=== PATIENT | female | born 1945 | race Caucasian/White ===

== ENCOUNTER 2023-02-27 17:33 | Inpatient (IN) | payer BC ==
[~2023-02-27] VITALS: Ht 167.6 cm; Wt 85.2 kg
[2023-02-27 18:19] LABS: CALCIUM 8.4 mg/dL (8.5-10.1); POTASSIUM 4.7 mmol/L (3.5-5.1)
[2023-02-27 18:28] LABS: BASOPHILS # (AUTO) 0.1 K/UL (0.0-0.2); BASOPHILS % (AUTO) 0.5 % (0.0-2.0); EOSINOPHILS # (AUTO) 0.2 K/uL (0.0-0.7); EOSINOPHILS % (AUTO) 1.3 % (0.0-7.0); HEMATOCRIT 29.8 % (31.2-41.9); LYMPHOCYTES # (AUTO) 1.4 K/uL (0.8-4.8); LYMPHOCYTES % (AUTO) 9.3 % (20.5-51.5); MEAN CORPUSCULAR HEMOGLOBIN 30.8 uug (24.7-32.8); MEAN CORPUSCULAR HGB CONC 34 g/dL (32.3-35.6); MEAN CORPUSCULAR VOLUME 91.6 fL (75.5-95.3); MONOCYTES # (AUTO) 1.2 K/uL (0.1-1.30); MONOCYTES % (AUTO) 8.1 % (0.0-11.0); NEUTROPHILS # (AUTO) 12.5 K/uL (1.8-8.9); NEUTROPHILS % (AUTO) 80.8 % (38.5-71.5); PLATELET COUNT (AUTO) 468 K/uL (179-408); RED BLOOD CELL COUNT(AUTO) 3.25 MIL/uL (3.63-4.92); RED CELL DISTRIBUTION WIDTH 15.3 % (12.3-17.7); WHITE BLOOD COUNT (AUTO) 15.4 K/uL (3.8-11.8)
[2023-02-27 18:30] LABS: DIFFERENTIAL COMMENT 1
[2023-02-27 18:31] LABS: ALBUMIN 2.1 g/dL (3.4-5.0); BILIRUBIN,TOTAL 0.4 mg/dL (0.2-1.0); TOTAL PROTEIN, SERUM 6.7 g/dL (6.4-8.2)
[2023-02-27] MEDS ORDERED: ALBUTEROL SULFATE 2.5 MG/3 ML NEBU ONE (19:28)
[2023-02-27] MEDS ORDERED: FUROSEMIDE 20 MG/2 ML VIAL ONE (19:29)
[2023-02-27] MEDS ORDERED: ALBUTEROL SULFATE 2.5 MG/3 ML NEBU NEB ONE (19:30)
[2023-02-27] MEDS ORDERED: FUROSEMIDE 20 MG/2 ML VIAL IV ONE (19:30)
[2023-02-27 19:35] VITALS: O2SAT 96
[2023-02-27 19:46] VITALS: O2SAT 98
[2023-02-27 19:50] VITALS: O2SAT 98
[2023-02-27] MEDS ORDERED: CEFTRIAXONE /D5W 50ML IVPB **ER PYXIS IV ONE (19:59)
[2023-02-27] MEDS ORDERED: AZITHROMYCIN 500MG/ D5W 250ML IVPB **ER PYXIS ONLY IV ONE (19:59)
[2023-02-27] MEDS ORDERED: CEFTRIAXONE 1 G in IV DEXTROSE 5% 50 ML IV ONE (20:00)
[2023-02-27] MEDS ORDERED: AZITHROMYCIN IV 500 MG in IV DEXTROSE 5% 250 ML IV ONE (20:00)
[2023-02-27] MEDS ORDERED: IV NORMAL SALINE 500 ML BAG IV ONE (20:15)
[2023-02-27] MEDS ORDERED: ONDANSETRON 4 MG/2 ML VIAL IV PRN (20:30)
[2023-02-27] MEDS ORDERED: REMEDY ESSENTIAL ZINC PASTE 113 GM TP PRN (20:30)
[2023-02-27] MEDS ORDERED: MAGNESIUM HYDROXIDE 30 ML LIQUID UDC PO PRN (20:30)
[2023-02-27] MEDS ORDERED: CEFEPIME HCL 1 G VIAL ONE (22:30)
[2023-02-27] MEDS ORDERED: VANCOMYCIN 1000 MG VIAL ONE (22:37)
[2023-02-27] MEDS ORDERED: VANCOMYCIN HCL 500 MG VIAL ONE (22:37)
[2023-02-27] MEDS: IV 1/2NS 1000 ML 1,000 ML IV PRN (22:41)
[2023-02-27] MEDS: CEFEPIME HCL 1 G in IV DEXTROSE 5% 50 ML IV SCH (22:46)
[2023-02-27] MEDS: ENOXAPARIN SODIUM 40 MG/0.4 ML DISP.SYRIN SQ SCH (22:57)
[2023-02-27] MEDS ORDERED: VANCOMYCIN IV 1,500 MG in IV DEXTROSE 5% 500 ML IV ONE (23:00)
[2023-02-27 23:10] VITALS: BP 114/49; TEMP 97.5; O2SAT 96
[2023-02-28 04:20] VITALS: BP 125/61; TEMP 98.5; O2SAT 96
[2023-02-28 06:24] LABS: BASOPHILS # (AUTO) 0.2 K/UL (0.0-0.2); BASOPHILS % (AUTO) 1.3 % (0.0-2.0); EOSINOPHILS # (AUTO) 0.2 K/uL (0.0-0.7); EOSINOPHILS % (AUTO) 1.7 % (0.0-7.0); HEMOGLOBIN 9.1 g/dL (10.9-14.3); LYMPHOCYTES # (AUTO) 1.8 K/uL (0.8-4.8); MEAN CORPUSCULAR HEMOGLOBIN 30.3 uug (24.7-32.8); MEAN CORPUSCULAR HGB CONC 32 g/dL (32.3-35.6); MEAN CORPUSCULAR VOLUME 93.4 fL (75.5-95.3); MONOCYTES # (AUTO) 1.2 K/uL (0.1-1.30); MONOCYTES % (AUTO) 9.2 % (0.0-11.0); NEUTROPHILS # (AUTO) 9.6 K/uL (1.8-8.9); NEUTROPHILS % (AUTO) 73.8 % (38.5-71.5); PLATELET COUNT (AUTO) 456 K/uL (179-408); RED CELL DISTRIBUTION WIDTH 15.1 % (12.3-17.7)
[2023-02-28 06:27] LABS: DIFFERENTIAL COMMENT 1
[2023-02-28 06:45] LABS: ALANINE AMINOTRANSFERASE 23 U/L (14-59); ALBUMIN 1.9 g/dL (3.4-5.0); ALKALINE PHOSPHATASE 85 U/L (50-136); ASPARTATE AMINOTRANSFERASE 22 U/L (15-37); BILIRUBIN,TOTAL 0.4 mg/dL (0.2-1.0); CALCIUM 8.5 mg/dL (8.5-10.1); CARBON DIOXIDE 23 mmol/L (21-32); CHLORIDE 98 mmol/L (98-107); CREATININE 0.8 mg/dL (0.6-1.3); GLUCOSE 98 mg/dL (74-106); MAGNESIUM 2.1 mg/dL (1.8-2.4); PHOSPHOROUS 3.4 mg/dL (2.5-4.9); POTASSIUM 4.5 mmol/L (3.5-5.1); SODIUM SERUM 132 mmol/L (136-145); UREA NITROGEN, BLOOD 12 mg/dL (7-18)
[2023-02-28 07:28] LABS: *BILIRUBIN,URIN NEGATIVE (NEGATIVE); *BLOOD, URINE NEGATIVE (NEGATIVE); *CLARITY,URINE CLEAR (CLEAR); *COLOR,URINE YELLOW (YELLOW); *KETONES,URINE NEGATIVE (NEGATIVE); *PROTEIN,URINE TRACE (NEGATIVE); *UROBILINOGEN,URINE 0.2 E.U./dl (NORMAL); LEUKOCYTE ESTERASE ,URINE TRACE (NEGATIVE); NITRITE, URINE POSITIVE (NEGATIVE); UGLUCOSE NEGATIVE (NEGATIVE)
[2023-02-28 07:56] LABS: BACTERIA,URINE FEW /HPF (NONE SEEN); RBC,URINE 0-3 /HPF (0-3); SQUAMOUS EPITHELIAL CELL,UR FEW /HPF (NONE SEEN); URINE AMORPHOUS URATE FEW /HPF
[2023-02-28 08:30] VITALS: O2SAT 96
[2023-02-28] MEDS: CEFEPIME HCL 1 G in IV DEXTROSE 5% 50 ML IV SCH ×2 (09:10→20:32)
[2023-02-28 11:54] VITALS: BP 135/66; TEMP 98.1; O2SAT 96
[2023-02-28] MEDS: IV 1/2NS 1000 ML 1,000 ML IV PRN (15:52)
[2023-02-28] MEDS: VANCOMYCIN IV 1,000 MG in IV DEXTROSE 5% 250 ML IV SCH (16:04)
[2023-02-28 16:39] VITALS: BP 139/46; TEMP 98.9; O2SAT 96
[2023-02-28] MEDS ORDERED: BENZONATATE 100 MG CAPSULE PO SCH (19:15)
[2023-02-28 20:17] VITALS: BP 135/72; TEMP 98.7; O2SAT 96
[2023-02-28 20:30] VITALS: O2SAT 96
[2023-02-28] MEDS: BENZONATATE 100 MG CAPSULE PO PRN (20:31)
[2023-02-28] MEDS: ENOXAPARIN SODIUM 40 MG/0.4 ML DISP.SYRIN SQ SCH (20:33)
[2023-03-01 00:03] VITALS: BP 141/73; TEMP 98.9; O2SAT 96
[2023-03-01] MEDS: IV 1/2NS 1000 ML 1,000 ML IV PRN ×2 (01:17→11:29)
[2023-03-01 04:20] VITALS: BP 140/74; TEMP 99.2; O2SAT 96
[2023-03-01] MEDS: CEFEPIME HCL 1 G in IV DEXTROSE 5% 50 ML IV SCH ×2 (08:38→20:49)
[2023-03-01 11:17] VITALS: BP 126/57; TEMP 97.7; O2SAT 97
[2023-03-01] MEDS: VANCOMYCIN IV 1,000 MG in IV DEXTROSE 5% 250 ML IV SCH (11:28)
[2023-03-01] MEDS ORDERED: OXYC5CAP18 PO (14:27)
[2023-03-01] MEDS ORDERED: bupropion PO (14:27)
[2023-03-01] MEDS ORDERED: ACET325T53 PO (14:27)
[2023-03-01] MEDS ORDERED: LEVO175T7 PO (14:27)
[2023-03-01] MEDS ORDERED: ALBU0.63 IH (14:27)
[2023-03-01] MEDS ORDERED: CARV3.122 PO (14:27)
[2023-03-01] MEDS ORDERED: MAGN400T26 PO (14:27)
[2023-03-01] MEDS ORDERED: ALEN70TA80 PO (14:27)
[2023-03-01] MEDS ORDERED: BISA10SU61 RC (14:27)
[2023-03-01] MEDS ORDERED: PARO40TA4 PO (14:27)
[2023-03-01] MEDS ORDERED: SODI1TAB3 PO (14:27)
[2023-03-01] MEDS ORDERED: ONDA-104 PO (14:27)
[2023-03-01] MEDS ORDERED: NA P133E RC (14:27)
[2023-03-01] MEDS ORDERED: ASCO500C18 PO (14:27)
[2023-03-01] MEDS ORDERED: TRAZ-182 PO (14:27)
[2023-03-01] MEDS ORDERED: DONE5TAB34 PO (14:27)
[2023-03-01] MEDS ORDERED: PANT20TA2 PO (14:27)
[2023-03-01] MEDS ORDERED: HYDR-894 PO (14:27)
[2023-03-01] MEDS ORDERED: SENN-261 PO (14:27)
[2023-03-01] MEDS ORDERED: MULT-1160 PO (14:27)
[2023-03-01 14:39] VITALS: O2SAT 97
[2023-03-01 16:04] VITALS: BP 164/79; TEMP 99.1
[2023-03-01 20:19] VITALS: BP 137/78; TEMP 98.9; O2SAT 96
[2023-03-01] MEDS: ENOXAPARIN SODIUM 40 MG/0.4 ML DISP.SYRIN SQ SCH (20:49)
[2023-03-02] VITALS (8 sets, daily range): BP systolic 106–125; BP diastolic 48–64; TEMP 98.3–98.7; O2SAT 74–98
[2023-03-02 04:45] LABS: THYROID STIMULATING HORMONE 0.064 mIU/mL (0.358-3.740)
[2023-03-02 04:54] LABS: CALCIUM 8.2 mg/dL (8.5-10.1); CARBON DIOXIDE 24 mmol/L (21-32); CHLORIDE 94 mmol/L (98-107); CREATININE 0.8 mg/dL (0.6-1.3); GLUCOSE 119 mg/dL (74-106); POTASSIUM 4.3 mmol/L (3.5-5.1); SODIUM SERUM 125 mmol/L (136-145); UREA NITROGEN, BLOOD 6 mg/dL (7-18)
[2023-03-02 04:58] LABS: MAGNESIUM 1.7 mg/dL (1.8-2.4); PHOSPHOROUS 2.6 mg/dL (2.5-4.9)
[2023-03-02 05:19] LABS: URIC ACID 0.1 mg/dL (2.6-6.0)
[2023-03-02] MEDS: VANCOMYCIN IV 1,000 MG in IV DEXTROSE 5% 250 ML IV SCH (05:33)
[2023-03-02] MEDS: IV 1/2NS 1000 ML 1,000 ML IV PRN ×2 (05:37→21:50)
[2023-03-02 05:39] LABS: *SODIUM RNDM,URINE 44 mmol/L (40-220)
[2023-03-02] MEDS: CEFEPIME HCL 1 G in IV DEXTROSE 5% 50 ML IV SCH ×2 (08:42→21:46)
[2023-03-02] MEDS ORDERED: MAGNESIUM OXIDE 400 MG TABLET PO ONE ×2 (09:30)
[2023-03-02] MEDS: GUAIFENESIN/DEXTROMETHORPHAN 5 ML UDC PO PRN (13:22)
[2023-03-02] MEDS ORDERED: SENNOSIDES 1 TABLET PO PRN (18:30)
[2023-03-02] MEDS ORDERED: hydrALAZINE HCL 25 MG TABLET PO PRN (18:30)
[2023-03-02] MEDS ORDERED: BISACODYL 10 MG SUPP.RECT RC PRN (18:30)
[2023-03-02] MEDS ORDERED: FLEET ENEMA 133 ML BOTTLE RC PRN (18:30)
[2023-03-02] MEDS: SODIUM CHLORIDE 1,000 MG TABLET PO SCH (18:52)
[2023-03-02] MEDS ORDERED: VANCOMYCIN IV 1,250 MG in IV DEXTROSE 5% 250 ML IV SCH (21:00)
[2023-03-02] MEDS: DONEPEZIL 5 MG TABLET PO SCH (21:46)
[2023-03-02] MEDS: TRAZODONE 50 MG TABLET PO SCH (21:47)
[2023-03-02] MEDS: ENOXAPARIN SODIUM 40 MG/0.4 ML DISP.SYRIN SQ SCH (21:48)
[2023-03-03 05:16] VITALS: BP 128/68; TEMP 98.6; O2SAT 96
[2023-03-03 06:51] LABS: CALCIUM 7.9 mg/dL (8.5-10.1); CARBON DIOXIDE 25 mmol/L (21-32); CHLORIDE 94 mmol/L (98-107); CREATININE 0.8 mg/dL (0.6-1.3); GLUCOSE 98 mg/dL (74-106); MAGNESIUM 1.7 mg/dL (1.8-2.4); POTASSIUM 4.1 mmol/L (3.5-5.1); SODIUM SERUM 123 mmol/L (136-145); UREA NITROGEN, BLOOD 9 mg/dL (7-18)
[2023-03-03 08:33] LABS: MAGNESIUM 1.7 mg/dL (1.8-2.4); PHOSPHOROUS 2.3 mg/dL (2.5-4.9); URIC ACID 2.6 mg/dL (2.6-6.0)
[2023-03-03] MEDS: CEFEPIME HCL 1 G in IV DEXTROSE 5% 50 ML IV SCH ×2 (08:45→21:54)
[2023-03-03] MEDS: GUAIFENESIN/DEXTROMETHORPHAN 5 ML UDC PO PRN ×2 (08:46→16:10)
[2023-03-03] MEDS: MAGNESIUM OXIDE 400 MG TABLET PO SCH (08:46)
[2023-03-03] MEDS: PAROXETINE HCL 20 MG TABLET PO SCH (08:46)
[2023-03-03] MEDS: ASCORBIC ACID 500 MG TABLET PO SCH (08:46)
[2023-03-03] MEDS: MULTIVIT, IRON, MIN NO. 8, FA TABLET PO SCH (08:46)
[2023-03-03] MEDS: SODIUM CHLORIDE 1,000 MG TABLET PO SCH ×2 (08:46→16:10)
[2023-03-03] MEDS ORDERED: MAGNESIUM OXIDE 400 MG TABLET PO ONE (09:00)
[2023-03-03] MEDS ORDERED: SODIUM PHOSPHATE MM 15 MMOL in IV NORMAL SALINE 250 ML IV ONE (09:00)
[2023-03-03] MEDS: buPROPion 100 MG TABLET PO SCH (09:50)
[2023-03-03 10:25] LABS: THYROID STIMULATING HORMONE 0.114 mIU/mL (0.358-3.740)
[2023-03-03 11:23] VITALS: BP 110/59; TEMP 98.4; O2SAT 99
[2023-03-03 15:20] VITALS: BP 120/60; TEMP 98.6; O2SAT 97
[2023-03-03] MEDS: IV 1/2NS 1000 ML 1,000 ML IV PRN (16:50)
[2023-03-03 19:45] VITALS: BP 119/60; TEMP 99.1; O2SAT 96
[2023-03-03 20:51] VITALS: O2SAT 95
[2023-03-03] MEDS: DONEPEZIL 5 MG TABLET PO SCH (21:53)
[2023-03-03] MEDS: ENOXAPARIN SODIUM 40 MG/0.4 ML DISP.SYRIN SQ SCH (21:53)
[2023-03-03] MEDS: TRAZODONE 50 MG TABLET PO SCH (21:53)
[2023-03-03 23:45] VITALS: O2SAT 98
[2023-03-04] VITALS (7 sets, daily range): BP systolic 102–147; BP diastolic 42–61; TEMP 98.2–98.9; O2SAT 94–99
[2023-03-04 07:23] LABS: BASOPHILS # (AUTO) 0.2 K/UL (0.0-0.2); BASOPHILS % (AUTO) 0.7 % (0.0-2.0); EOSINOPHILS # (AUTO) 0.4 K/uL (0.0-0.7); EOSINOPHILS % (AUTO) 1.3 % (0.0-7.0); HEMATOCRIT 25.6 % (31.2-41.9); HEMOGLOBIN 7.9 g/dL (10.9-14.3); LYMPHOCYTES # (AUTO) 2.1 K/uL (0.8-4.8); LYMPHOCYTES % (AUTO) 7.6 % (20.5-51.5); MEAN CORPUSCULAR HEMOGLOBIN 28.3 uug (24.7-32.8); MEAN CORPUSCULAR HGB CONC 31 g/dL (32.3-35.6); MEAN CORPUSCULAR VOLUME 92.2 fL (75.5-95.3); MONOCYTES # (AUTO) 2.1 K/uL (0.1-1.30); MONOCYTES % (AUTO) 7.5 % (0.0-11.0); NEUTROPHILS # (AUTO) 23.3 K/uL (1.8-8.9); NEUTROPHILS % (AUTO) 82.9 % (38.5-71.5); PLATELET COUNT (AUTO) 548 K/uL (179-408); RED BLOOD CELL COUNT(AUTO) 2.78 MIL/uL (3.63-4.92); RED CELL DISTRIBUTION WIDTH 15.5 % (12.3-17.7); WHITE BLOOD COUNT (AUTO) 28.1 K/uL (3.8-11.8)
[2023-03-04 08:10] LABS: ALANINE AMINOTRANSFERASE 76 U/L (14-59); ALKALINE PHOSPHATASE 171 U/L (50-136); ASPARTATE AMINOTRANSFERASE 95 U/L (15-37); BILIRUBIN,TOTAL 0.3 mg/dL (0.2-1.0); CARBON DIOXIDE 25 mmol/L (21-32); CHLORIDE 97 mmol/L (98-107); CREATININE 0.8 mg/dL (0.6-1.3); GLUCOSE 102 mg/dL (74-106); MAGNESIUM 1.9 mg/dL (1.8-2.4); PHOSPHOROUS 2.2 mg/dL (2.5-4.9); SODIUM SERUM 128 mmol/L (136-145); TOTAL PROTEIN, SERUM 5.4 g/dL (6.4-8.2); UREA NITROGEN, BLOOD 8 mg/dL (7-18)
[2023-03-04 08:11] LABS: DIFFERENTIAL COMMENT 1
[2023-03-04 08:18] LABS: CALCIUM 7.9 mg/dL (8.5-10.1)
[2023-03-04 08:41] LABS: ALBUMIN 1.4 g/dL (3.4-5.0)
[2023-03-04] MEDS: MULTIVIT, IRON, MIN NO. 8, FA TABLET PO SCH (09:01)
[2023-03-04] MEDS: SODIUM CHLORIDE 1,000 MG TABLET PO SCH ×2 (09:01→16:28)
[2023-03-04] MEDS: MAGNESIUM OXIDE 400 MG TABLET PO SCH (09:03)
[2023-03-04] MEDS: PAROXETINE HCL 20 MG TABLET PO SCH (09:06)
[2023-03-04] MEDS: ASCORBIC ACID 500 MG TABLET PO SCH (09:06)
[2023-03-04] MEDS: buPROPion 100 MG TABLET PO SCH (09:06)
[2023-03-04] MEDS: CEFEPIME HCL 1 G in IV DEXTROSE 5% 50 ML IV SCH ×2 (09:07→20:48)
[2023-03-04] MEDS: PROTEIN SUPPLEMENT (PROSTAT) 30 ML LIQUID PO SCH ×2 (11:10→16:28)
[2023-03-04] MEDS: OXYCODONE HCL 5 MG TABLET PO PRN (11:10)
[2023-03-04 13:25] LABS: *SODIUM RNDM,URINE 31 mmol/L (40-220)
[2023-03-04] MEDS ORDERED: NEUTRA PHOS PACKET PO ONE (16:00)
[2023-03-04] MEDS: ENOXAPARIN SODIUM 40 MG/0.4 ML DISP.SYRIN SQ SCH (20:47)
[2023-03-04] MEDS: TRAZODONE 50 MG TABLET PO SCH (20:48)
[2023-03-04] MEDS: DONEPEZIL 5 MG TABLET PO SCH (20:48)
[2023-03-04] MEDS: IV 1/2NS 1000 ML 1,000 ML IV PRN (23:15)
[2023-03-05 05:38] VITALS: BP 113/54; TEMP 98.5; O2SAT 97
[2023-03-05 07:43] LABS: BASOPHILS # (AUTO) 0.1 K/UL (0.0-0.2); BASOPHILS % (AUTO) 0.4 % (0.0-2.0); EOSINOPHILS # (AUTO) 0.2 K/uL (0.0-0.7); EOSINOPHILS % (AUTO) 1.6 % (0.0-7.0); HEMATOCRIT 24.8 % (31.2-41.9); HEMOGLOBIN 8.1 g/dL (10.9-14.3); LYMPHOCYTES # (AUTO) 1.6 K/uL (0.8-4.8); LYMPHOCYTES % (AUTO) 10.6 % (20.5-51.5); MEAN CORPUSCULAR HEMOGLOBIN 30.2 uug (24.7-32.8); MEAN CORPUSCULAR HGB CONC 33 g/dL (32.3-35.6); MEAN CORPUSCULAR VOLUME 92.3 fL (75.5-95.3); MONOCYTES # (AUTO) 1.3 K/uL (0.1-1.30); MONOCYTES % (AUTO) 9.1 % (0.0-11.0); NEUTROPHILS # (AUTO) 11.4 K/uL (1.8-8.9); NEUTROPHILS % (AUTO) 78.3 % (38.5-71.5); PLATELET COUNT (AUTO) 577 K/uL (179-408); RED BLOOD CELL COUNT(AUTO) 2.69 MIL/uL (3.63-4.92); RED CELL DISTRIBUTION WIDTH 15.1 % (12.3-17.7); WHITE BLOOD COUNT (AUTO) 14.6 K/uL (3.8-11.8)
[2023-03-05 08:02] LABS: DIFFERENTIAL COMMENT 1
[2023-03-05 08:21] LABS: CHLORIDE 98 mmol/L (98-107); GLUCOSE 91 mg/dL (74-106); PHOSPHOROUS 2.8 mg/dL (2.5-4.9); POTASSIUM 4.3 mmol/L (3.5-5.1); SODIUM SERUM 129 mmol/L (136-145); UREA NITROGEN, BLOOD 9 mg/dL (7-18)
[2023-03-05 08:26] LABS: C-REACTIVE PROTEIN 15.24 mg/dL (0.00-0.30)
[2023-03-05] MEDS: ASCORBIC ACID 500 MG TABLET PO SCH (08:35)
[2023-03-05] MEDS: SODIUM CHLORIDE 1,000 MG TABLET PO SCH ×2 (08:35→17:21)
[2023-03-05] MEDS: MAGNESIUM OXIDE 400 MG TABLET PO SCH (08:35)
[2023-03-05] MEDS: PAROXETINE HCL 20 MG TABLET PO SCH (08:35)
[2023-03-05] MEDS: MULTIVIT, IRON, MIN NO. 8, FA TABLET PO SCH (08:35)
[2023-03-05 08:36] LABS: CARBON DIOXIDE 25 mmol/L (21-32); CREATININE 0.8 mg/dL (0.6-1.3)
[2023-03-05] MEDS: buPROPion 100 MG TABLET PO SCH (08:36)
[2023-03-05] MEDS: PROTEIN SUPPLEMENT (PROSTAT) 30 ML LIQUID PO SCH ×3 (08:36→17:21)
[2023-03-05] MEDS: CEFEPIME HCL 1 G in IV DEXTROSE 5% 50 ML IV SCH (08:37)
[2023-03-05 11:18] VITALS: BP 123/67; TEMP 97.6; O2SAT 96
[2023-03-05 13:43] VITALS: O2SAT 97
[2023-03-05 14:59] VITALS: BP 117/57; TEMP 97.8; O2SAT 99
[2023-03-05 20:00] VITALS: BP 122/62; TEMP 99.1; O2SAT 97
[2023-03-05] MEDS: CEFEPIME HCL 2 G in IV DEXTROSE 5% 100 ML IV SCH (20:41)
[2023-03-05] MEDS: DONEPEZIL 5 MG TABLET PO SCH (20:41)
[2023-03-05] MEDS: TRAZODONE 50 MG TABLET PO SCH (20:41)
[2023-03-05] MEDS: ENOXAPARIN SODIUM 40 MG/0.4 ML DISP.SYRIN SQ SCH (20:44)
[2023-03-05] MEDS ORDERED: VANCOMYCIN IV 1,250 MG in IV DEXTROSE 5% 250 ML IV ONE (20:45)
[2023-03-06 02:45] VITALS: O2SAT 98
[2023-03-06 04:00] VITALS: BP 129/68; TEMP 98.1; O2SAT 96
[2023-03-06 06:00] LABS: BASOPHILS % (AUTO) 0.3 % (0.0-2.0); EOSINOPHILS # (AUTO) 0.2 K/uL (0.0-0.7); EOSINOPHILS % (AUTO) 1.3 % (0.0-7.0); HEMATOCRIT 25.7 % (31.2-41.9); HEMOGLOBIN 8.6 g/dL (10.9-14.3); LYMPHOCYTES # (AUTO) 1.5 K/uL (0.8-4.8); LYMPHOCYTES % (AUTO) 10.2 % (20.5-51.5); MEAN CORPUSCULAR HEMOGLOBIN 29.8 uug (24.7-32.8); MEAN CORPUSCULAR HGB CONC 33 g/dL (32.3-35.6); MEAN CORPUSCULAR VOLUME 89.4 fL (75.5-95.3); MONOCYTES # (AUTO) 1.4 K/uL (0.1-1.30); MONOCYTES % (AUTO) 9.5 % (0.0-11.0); NEUTROPHILS # (AUTO) 11.4 K/uL (1.8-8.9); NEUTROPHILS % (AUTO) 78.7 % (38.5-71.5); PLATELET COUNT (AUTO) 636 K/uL (179-408); RED BLOOD CELL COUNT(AUTO) 2.87 MIL/uL (3.63-4.92); RED CELL DISTRIBUTION WIDTH 14.9 % (12.3-17.7); WHITE BLOOD COUNT (AUTO) 14.5 K/uL (3.8-11.8)
[2023-03-06 06:09] LABS: DIFFERENTIAL COMMENT 1
[2023-03-06 06:23] LABS: ALANINE AMINOTRANSFERASE 86 U/L (14-59); ALKALINE PHOSPHATASE 178 U/L (50-136); ASPARTATE AMINOTRANSFERASE 91 U/L (15-37); BILIRUBIN,TOTAL 0.3 mg/dL (0.2-1.0); CARBON DIOXIDE 24 mmol/L (21-32); CHLORIDE 97 mmol/L (98-107); CREATININE 0.8 mg/dL (0.6-1.3); GLUCOSE 97 mg/dL (74-106); MAGNESIUM 1.9 mg/dL (1.8-2.4); PHOSPHOROUS 3.1 mg/dL (2.5-4.9); POTASSIUM 4.2 mmol/L (3.5-5.1); SODIUM SERUM 128 mmol/L (136-145); TOTAL PROTEIN, SERUM 5.5 g/dL (6.4-8.2); UREA NITROGEN, BLOOD 8 mg/dL (7-18)
[2023-03-06 06:31] LABS: ALBUMIN 1.4 g/dL (3.4-5.0)
[2023-03-06 08:00] VITALS: BP 132/62; TEMP 98.5; O2SAT 95
[2023-03-06] MEDS: PROTEIN SUPPLEMENT (PROSTAT) 30 ML LIQUID PO SCH ×3 (08:31→16:32)
[2023-03-06] MEDS: MAGNESIUM OXIDE 400 MG TABLET PO SCH (08:46)
[2023-03-06] MEDS: PAROXETINE HCL 20 MG TABLET PO SCH (08:46)
[2023-03-06] MEDS: MULTIVIT, IRON, MIN NO. 8, FA TABLET PO SCH (08:46)
[2023-03-06] MEDS: CEFEPIME HCL 2 G in IV DEXTROSE 5% 100 ML IV SCH ×2 (08:47→20:40)
[2023-03-06] MEDS: buPROPion 100 MG TABLET PO SCH (08:47)
[2023-03-06] MEDS: ASCORBIC ACID 500 MG TABLET PO SCH (08:47)
[2023-03-06] MEDS: SODIUM CHLORIDE 1,000 MG TABLET PO SCH ×2 (08:47→16:32)
[2023-03-06] MEDS: ACETAMINOPHEN 325 MG TABLET PO PRN (09:04)
[2023-03-06 12:00] VITALS: BP 118/64; TEMP 97.9; O2SAT 95
[2023-03-06 16:00] VITALS: BP 128/59; TEMP 98.4; O2SAT 94; O2SAT 96
[2023-03-06] MEDS: VANCOMYCIN IV 1,250 MG in IV DEXTROSE 5% 250 ML IV SCH (16:32)
[2023-03-06] MEDS ORDERED: FUROSEMIDE 20 MG/2 ML VIAL IV ONE (16:45)
[2023-03-06] MEDS: IV 1/2NS 1000 ML 1,000 ML IV PRN (19:20)
[2023-03-06 20:00] VITALS: BP 135/63; TEMP 99; O2SAT 99
[2023-03-06] MEDS: DONEPEZIL 5 MG TABLET PO SCH (20:40)
[2023-03-06] MEDS: TRAZODONE 50 MG TABLET PO SCH (20:41)
[2023-03-06] MEDS: ENOXAPARIN SODIUM 40 MG/0.4 ML DISP.SYRIN SQ SCH (20:48)
[2023-03-06] MEDS ORDERED: VANCOMYCIN IV 1,250 MG in IV DEXTROSE 5% 250 ML IV SCH (22:00)
[2023-03-07] VITALS (7 sets, daily range): BP systolic 89–138; BP diastolic 48–63; TEMP 97.6–98.9; O2SAT 93–100
[2023-03-07 07:20] LABS: CALCIUM 8.5 mg/dL (8.5-10.1); CARBON DIOXIDE 27 mmol/L (21-32); CHLORIDE 95 mmol/L (98-107); CREATININE 0.7 mg/dL (0.6-1.3); GLUCOSE 91 mg/dL (74-106); SODIUM SERUM 130 mmol/L (136-145); UREA NITROGEN, BLOOD 12 mg/dL (7-18)
[2023-03-07] MEDS: PROTEIN SUPPLEMENT (PROSTAT) 30 ML LIQUID PO SCH ×3 (08:51→17:21)
[2023-03-07] MEDS: MULTIVIT, IRON, MIN NO. 8, FA TABLET PO SCH (09:03)
[2023-03-07] MEDS: PAROXETINE HCL 20 MG TABLET PO SCH (09:03)
[2023-03-07] MEDS: buPROPion 100 MG TABLET PO SCH (09:03)
[2023-03-07] MEDS: MAGNESIUM OXIDE 400 MG TABLET PO SCH (09:03)
[2023-03-07] MEDS: SODIUM CHLORIDE 1,000 MG TABLET PO SCH ×2 (09:03→17:21)
[2023-03-07] MEDS: CEFEPIME HCL 2 G in IV DEXTROSE 5% 100 ML IV SCH ×2 (09:03→20:49)
[2023-03-07] MEDS: ASCORBIC ACID 500 MG TABLET PO SCH (09:03)
[2023-03-07] MEDS: BENZONATATE 100 MG CAPSULE PO PRN (10:25)
[2023-03-07] MEDS: VANCOMYCIN IV 1,250 MG in IV DEXTROSE 5% 250 ML IV SCH (10:34)
[2023-03-07] MEDS: GUAIFENESIN/DEXTROMETHORPHAN 5 ML UDC PO PRN (15:34)
[2023-03-07] MEDS: TRAZODONE 50 MG TABLET PO SCH (20:50)
[2023-03-07] MEDS: DONEPEZIL 5 MG TABLET PO SCH (20:50)
[2023-03-07] MEDS: ENOXAPARIN SODIUM 40 MG/0.4 ML DISP.SYRIN SQ SCH (20:51)
[2023-03-07] MEDS: IV 1/2NS 1000 ML 1,000 ML IV PRN (20:59)
[2023-03-08] VITALS (8 sets, daily range): BP systolic 112–131; BP diastolic 55–66; TEMP 97.7–98; O2SAT 96–100
[2023-03-08 03:45] LABS: BASOPHILS # (AUTO) 0.1 K/UL (0.0-0.2); BASOPHILS % (AUTO) 0.5 % (0.0-2.0); EOSINOPHILS # (AUTO) 0.2 K/uL (0.0-0.7); EOSINOPHILS % (AUTO) 1.8 % (0.0-7.0); HEMATOCRIT 25.1 % (31.2-41.9); HEMOGLOBIN 8.3 g/dL (10.9-14.3); LYMPHOCYTES # (AUTO) 1.9 K/uL (0.8-4.8); LYMPHOCYTES % (AUTO) 13.3 % (20.5-51.5); MEAN CORPUSCULAR HEMOGLOBIN 29.7 uug (24.7-32.8); MEAN CORPUSCULAR HGB CONC 33 g/dL (32.3-35.6); MEAN CORPUSCULAR VOLUME 89.4 fL (75.5-95.3); MONOCYTES # (AUTO) 1.3 K/uL (0.1-1.30); MONOCYTES % (AUTO) 9.5 % (0.0-11.0); NEUTROPHILS # (AUTO) 10.4 K/uL (1.8-8.9); NEUTROPHILS % (AUTO) 74.9 % (38.5-71.5); PLATELET COUNT (AUTO) 621 K/uL (179-408); RED CELL DISTRIBUTION WIDTH 15.2 % (12.3-17.7); WHITE BLOOD COUNT (AUTO) 13.9 K/uL (3.8-11.8)
[2023-03-08 04:05] LABS: DIFFERENTIAL COMMENT 1
[2023-03-08] MEDS: IV 1/2NS 1000 ML 1,000 ML IV PRN (04:17)
[2023-03-08 04:18] LABS: ALANINE AMINOTRANSFERASE 61 U/L (14-59); ALKALINE PHOSPHATASE 165 U/L (50-136); ASPARTATE AMINOTRANSFERASE 47 U/L (15-37); BILIRUBIN,DIRECT 0.1 mg/dL (0.0-0.2); BILIRUBIN,TOTAL 0.3 mg/dL (0.2-1.0); CALCIUM 7.8 mg/dL (8.5-10.1); CARBON DIOXIDE 27 mmol/L (21-32); CHLORIDE 92 mmol/L (98-107); CREATININE 0.7 mg/dL (0.6-1.3); GLUCOSE 97 mg/dL (74-106); MAGNESIUM 1.7 mg/dL (1.8-2.4); PHOSPHOROUS 2.7 mg/dL (2.5-4.9); POTASSIUM 4.1 mmol/L (3.5-5.1); SODIUM SERUM 123 mmol/L (136-145); TOTAL PROTEIN, SERUM 5.5 g/dL (6.4-8.2); UREA NITROGEN, BLOOD 8 mg/dL (7-18)
[2023-03-08 04:25] LABS: ALBUMIN 1.4 g/dL (3.4-5.0); C-REACTIVE PROTEIN 11.91 mg/dL (0.00-0.30)
[2023-03-08] MEDS: VANCOMYCIN IV 1,250 MG in IV DEXTROSE 5% 250 ML IV SCH ×2 (04:48→20:30)
[2023-03-08] MEDS: IPRATROPIUM BROMIDE 0.5 MG/2.5 ML NEBU NEB SCH ×3 (07:35→19:59)
[2023-03-08] MEDS: ACETYLCYSTEINE 10% 4ML VIAL NEB SCH ×3 (07:35→19:59)
[2023-03-08] MEDS: ALBUTEROL SULFATE 2.5 MG/3 ML NEBU NEB SCH ×3 (07:35→19:59)
[2023-03-08] MEDS: SODIUM CHLORIDE 1,000 MG TABLET PO SCH ×2 (09:23→17:46)
[2023-03-08] MEDS: GUAIFENESIN/DEXTROMETHORPHAN 5 ML UDC PO PRN (09:23)
[2023-03-08] MEDS: PAROXETINE HCL 20 MG TABLET PO SCH (09:23)
[2023-03-08] MEDS: MAGNESIUM OXIDE 400 MG TABLET PO SCH (09:23)
[2023-03-08] MEDS: MULTIVIT, IRON, MIN NO. 8, FA TABLET PO SCH (09:23)
[2023-03-08] MEDS ORDERED: IOHEXOL 300MG/ML 100 ML INFUS..BTL ONE (09:26)
[2023-03-08] MEDS ORDERED: SWABABLE VALVE TRANSFER SET EA MC ONE (09:26)
[2023-03-08] MEDS ORDERED: IV NORMAL SALINE 250 ML IV ONE (09:26)
[2023-03-08] MEDS: ASCORBIC ACID 500 MG TABLET PO SCH (09:28)
[2023-03-08] MEDS: buPROPion 100 MG TABLET PO SCH (09:28)
[2023-03-08] MEDS ORDERED: IV SODIUM CHLORIDE 3% 500 ML IV SCH (09:30)
[2023-03-08] MEDS: PROTEIN SUPPLEMENT (PROSTAT) 30 ML LIQUID PO SCH ×3 (09:40→17:47)
[2023-03-08] MEDS ORDERED: MAGNESIUM OXIDE 400 MG TABLET PO ONE (09:45)
[2023-03-08] MEDS: CEFEPIME HCL 2 G in IV DEXTROSE 5% 100 ML IV SCH ×2 (10:26→20:43)
[2023-03-08] MEDS: TRAZODONE 50 MG TABLET PO SCH (20:30)
[2023-03-08] MEDS: DONEPEZIL 5 MG TABLET PO SCH (20:30)
[2023-03-08] MEDS: ENOXAPARIN SODIUM 40 MG/0.4 ML DISP.SYRIN SQ SCH (20:32)
[2023-03-09] MEDS: ACETYLCYSTEINE 10% 4ML VIAL NEB SCH ×4 (01:30→19:30)
[2023-03-09 05:23] VITALS: BP 119/45; TEMP 98; O2SAT 99
[2023-03-09 07:38] LABS: CALCIUM 8.4 mg/dL (8.5-10.1); CARBON DIOXIDE 27 mmol/L (21-32); CHLORIDE 93 mmol/L (98-107); CREATININE 0.7 mg/dL (0.6-1.3); GLUCOSE 106 mg/dL (74-106); MAGNESIUM 1.9 mg/dL (1.8-2.4); POTASSIUM 4.1 mmol/L (3.5-5.1); SODIUM SERUM 126 mmol/L (136-145); UREA NITROGEN, BLOOD 8 mg/dL (7-18)
[2023-03-09] MEDS: PROTEIN SUPPLEMENT (PROSTAT) 30 ML LIQUID PO SCH ×3 (08:10→16:59)
[2023-03-09] MEDS: IPRATROPIUM BROMIDE 0.5 MG/2.5 ML NEBU NEB SCH ×3 (09:08→19:30)
[2023-03-09] MEDS: ALBUTEROL SULFATE 2.5 MG/3 ML NEBU NEB SCH ×3 (09:09→19:30)
[2023-03-09 09:10] VITALS: O2SAT 98
[2023-03-09] MEDS: CEFEPIME HCL 2 G in IV DEXTROSE 5% 100 ML IV SCH ×2 (09:10→21:09)
[2023-03-09] MEDS: PAROXETINE HCL 20 MG TABLET PO SCH (09:11)
[2023-03-09] MEDS: SODIUM CHLORIDE 1,000 MG TABLET PO SCH ×2 (09:11→16:58)
[2023-03-09] MEDS: MAGNESIUM OXIDE 400 MG TABLET PO SCH (09:11)
[2023-03-09] MEDS: MULTIVIT, IRON, MIN NO. 8, FA TABLET PO SCH (09:11)
[2023-03-09] MEDS: buPROPion 100 MG TABLET PO SCH (09:12)
[2023-03-09] MEDS: ASCORBIC ACID 500 MG TABLET PO SCH (09:13)
[2023-03-09 09:20] VITALS: O2SAT 99
[2023-03-09 10:59] VITALS: BP 135/60; TEMP 98; O2SAT 98
[2023-03-09] MEDS: VANCOMYCIN IV 1,250 MG in IV DEXTROSE 5% 250 ML IV SCH (13:17)
[2023-03-09 15:58] VITALS: BP 115/53; TEMP 97.4; O2SAT 96
[2023-03-09 20:05] VITALS: BP 132/66; TEMP 98.1; O2SAT 99
[2023-03-09] MEDS: ENOXAPARIN SODIUM 40 MG/0.4 ML DISP.SYRIN SQ SCH (21:00)
[2023-03-09] MEDS: TRAZODONE 50 MG TABLET PO SCH (21:08)
[2023-03-09] MEDS: DONEPEZIL 5 MG TABLET PO SCH (21:08)
[2023-03-10] MEDS: ACETYLCYSTEINE 10% 4ML VIAL NEB SCH ×4 (00:32→19:30)
[2023-03-10 03:48] VITALS: O2SAT 99
[2023-03-10] MEDS: VANCOMYCIN IV 1,250 MG in IV DEXTROSE 5% 250 ML IV SCH ×2 (04:00→10:07)
[2023-03-10 05:21] VITALS: BP 129/61; TEMP 97.7; O2SAT 96
[2023-03-10] MEDS: LEVOTHYROXINE SODIUM 150 MCG TABLET PO SCH (07:00)
[2023-03-10 07:02] LABS: BASOPHILS # (AUTO) 0.2 K/UL (0.0-0.2); BASOPHILS % (AUTO) 1.1 % (0.0-2.0); EOSINOPHILS # (AUTO) 0.3 K/uL (0.0-0.7); EOSINOPHILS % (AUTO) 2.1 % (0.0-7.0); HEMATOCRIT 26.7 % (31.2-41.9); HEMOGLOBIN 8.7 g/dL (10.9-14.3); LYMPHOCYTES # (AUTO) 1.9 K/uL (0.8-4.8); LYMPHOCYTES % (AUTO) 13.4 % (20.5-51.5); MEAN CORPUSCULAR HEMOGLOBIN 29.7 uug (24.7-32.8); MEAN CORPUSCULAR HGB CONC 33 g/dL (32.3-35.6); MEAN CORPUSCULAR VOLUME 91.2 fL (75.5-95.3); MONOCYTES # (AUTO) 1.2 K/uL (0.1-1.30); MONOCYTES % (AUTO) 8.5 % (0.0-11.0); NEUTROPHILS # (AUTO) 10.9 K/uL (1.8-8.9); NEUTROPHILS % (AUTO) 74.9 % (38.5-71.5); PLATELET COUNT (AUTO) 739 K/uL (179-408); RED BLOOD CELL COUNT(AUTO) 2.93 MIL/uL (3.63-4.92); RED CELL DISTRIBUTION WIDTH 15.1 % (12.3-17.7); RETICULOCYTE COUNT 2.2 % (0.5-2.2); WHITE BLOOD COUNT (AUTO) 14.5 K/uL (3.8-11.8)
[2023-03-10 07:10] LABS: DIFFERENTIAL COMMENT 1
[2023-03-10 07:14] LABS: IRON, SERUM 19 ug/dL (50-175)
[2023-03-10 07:26] LABS: CARBON DIOXIDE 26 mmol/L (21-32); CHLORIDE 91 mmol/L (98-107); CREATININE 0.7 mg/dL (0.6-1.3); FERRITIN 611 ng/mL (8-252); GLUCOSE 89 mg/dL (74-106); LACTATE DEHYDROGENASE 131 U/L (81-234); POTASSIUM 4.5 mmol/L (3.5-5.1); SODIUM SERUM 124 mmol/L (136-145); UREA NITROGEN, BLOOD 7 mg/dL (7-18)
[2023-03-10] MEDS: IPRATROPIUM BROMIDE 0.5 MG/2.5 ML NEBU NEB SCH ×3 (07:35→19:30)
[2023-03-10] MEDS: ALBUTEROL SULFATE 2.5 MG/3 ML NEBU NEB SCH ×3 (07:35→19:30)
[2023-03-10] MEDS: PROTEIN SUPPLEMENT (PROSTAT) 30 ML LIQUID PO SCH ×3 (08:00→17:36)
[2023-03-10] MEDS: MAGNESIUM OXIDE 400 MG TABLET PO SCH (09:00)
[2023-03-10] MEDS: PAROXETINE HCL 20 MG TABLET PO SCH (09:00)
[2023-03-10] MEDS: buPROPion 100 MG TABLET PO SCH (09:00)
[2023-03-10] MEDS: ASCORBIC ACID 500 MG TABLET PO SCH (09:00)
[2023-03-10] MEDS: SODIUM CHLORIDE 1,000 MG TABLET PO SCH ×2 (09:00→17:35)
[2023-03-10] MEDS: MULTIVIT, IRON, MIN NO. 8, FA TABLET PO SCH (09:00)
[2023-03-10] MEDS: CEFEPIME HCL 2 G in IV DEXTROSE 5% 100 ML IV SCH ×2 (09:04→20:16)
[2023-03-10 11:33] VITALS: BP 121/66; TEMP 97.7; O2SAT 98
[2023-03-10] MEDS ORDERED: COSYNTROPIN 0.25 MG VIAL IV ONE (14:45)
[2023-03-10 16:08] VITALS: BP 136/63; TEMP 97.8; O2SAT 100
[2023-03-10 20:10] VITALS: BP 132/68; TEMP 98; O2SAT 96
[2023-03-10] MEDS: TRAZODONE 50 MG TABLET PO SCH (20:16)
[2023-03-10] MEDS: DONEPEZIL 5 MG TABLET PO SCH (20:16)
[2023-03-10] MEDS: ENOXAPARIN SODIUM 40 MG/0.4 ML DISP.SYRIN SQ SCH (20:18)
[2023-03-11] VITALS (10 sets, daily range): BP systolic 112–127; BP diastolic 58–66; TEMP 96.8–97.9; O2SAT 96–99
[2023-03-11] MEDS: ACETYLCYSTEINE 10% 4ML VIAL NEB SCH ×4 (01:00→19:14)
[2023-03-11] MEDS: VANCOMYCIN IV 1,250 MG in IV DEXTROSE 5% 250 ML IV SCH ×2 (02:36→22:06)
[2023-03-11] MEDS: LEVOTHYROXINE SODIUM 150 MCG TABLET PO SCH (06:29)
[2023-03-11] MEDS: IPRATROPIUM BROMIDE 0.5 MG/2.5 ML NEBU NEB SCH ×3 (06:35→19:14)
[2023-03-11] MEDS: ALBUTEROL SULFATE 2.5 MG/3 ML NEBU NEB SCH ×3 (06:35→19:14)
[2023-03-11 07:04] LABS: CALCIUM 8.1 mg/dL (8.5-10.1); CARBON DIOXIDE 28 mmol/L (21-32); CHLORIDE 91 mmol/L (98-107); CREATININE 0.8 mg/dL (0.6-1.3); GLUCOSE 141 mg/dL (74-106); MAGNESIUM 1.9 mg/dL (1.8-2.4); PHOSPHOROUS 3.1 mg/dL (2.5-4.9); POTASSIUM 4.4 mmol/L (3.5-5.1); SODIUM SERUM 124 mmol/L (136-145); UREA NITROGEN, BLOOD 10 mg/dL (7-18)
[2023-03-11 07:10] LABS: BASOPHILS % (AUTO) 0.2 % (0.0-2.0); EOSINOPHILS # (AUTO) 0.1 K/uL (0.0-0.7); EOSINOPHILS % (AUTO) 0.6 % (0.0-7.0); HEMATOCRIT 26.4 % (31.2-41.9); HEMOGLOBIN 8.8 g/dL (10.9-14.3); LYMPHOCYTES # (AUTO) 1.4 K/uL (0.8-4.8); LYMPHOCYTES % (AUTO) 10.9 % (20.5-51.5); MEAN CORPUSCULAR HEMOGLOBIN 29.8 uug (24.7-32.8); MEAN CORPUSCULAR HGB CONC 33 g/dL (32.3-35.6); MEAN CORPUSCULAR VOLUME 89.4 fL (75.5-95.3); MONOCYTES # (AUTO) 0.8 K/uL (0.1-1.30); MONOCYTES % (AUTO) 6.2 % (0.0-11.0); NEUTROPHILS # (AUTO) 10.9 K/uL (1.8-8.9); NEUTROPHILS % (AUTO) 82.1 % (38.5-71.5); PLATELET COUNT (AUTO) 712 K/uL (179-408); RED BLOOD CELL COUNT(AUTO) 2.95 MIL/uL (3.63-4.92); WHITE BLOOD COUNT (AUTO) 13.3 K/uL (3.8-11.8)
[2023-03-11 08:11] LABS: *IMMUNOGLOBULIN G, SERUM 1224 mg/dL (586-1602); CANCER AG, 125 43.7 U/mL (0.0-38.1); CANCER ANTIGEN 15-3 29.9 U/mL (0.0-25.0); CARCINOEMBRYONIC AG (CEA) 2.3 ng/mL (0.0-4.7); IMMUNOGLOBULIN A, SERUM 136 mg/dL (64-422); IMMUNOGLOBULIN M, SERUM 180 mg/dL (26-217)
[2023-03-11] MEDS: ASCORBIC ACID 500 MG TABLET PO SCH (08:57)
[2023-03-11] MEDS: FLUCONAZOLE 100 MG TABLET PO SCH (08:57)
[2023-03-11] MEDS: PAROXETINE HCL 20 MG TABLET PO SCH (08:57)
[2023-03-11] MEDS: MAGNESIUM OXIDE 400 MG TABLET PO SCH (08:57)
[2023-03-11] MEDS: MULTIVIT, IRON, MIN NO. 8, FA TABLET PO SCH (08:57)
[2023-03-11] MEDS: SODIUM CHLORIDE 1,000 MG TABLET PO SCH ×2 (08:57→17:24)
[2023-03-11] MEDS: PROTEIN SUPPLEMENT (PROSTAT) 30 ML LIQUID PO SCH ×3 (08:58→17:23)
[2023-03-11] MEDS: CEFEPIME HCL 2 G in IV DEXTROSE 5% 100 ML IV SCH ×2 (09:00→22:06)
[2023-03-11] MEDS: buPROPion 100 MG TABLET PO SCH (09:00)
[2023-03-11 13:15] LABS: A/G RATIO 0.5 (0.7-1.7); ALBUMIN 1.8 g/dL (2.9-4.4); ALPHA-1-GLOBULIN 0.5 g/dL (0.0-0.4); ALPHA-2-GLOBULIN 0.8 g/dL (0.4-1.0); BETA GLOBULIN 0.8 g/dL (0.7-1.3); CORTISOL AM 18.5 ug/dL (6.2-19.4); GAMMA GLOBULIN 1.3 g/dL (0.4-1.8); GLOBULIN, TOTAL 3.5 g/dL (2.2-3.9); M-SPIKE Not Observed g/dL (Not Observed)
[2023-03-11] MEDS ORDERED: ALTEPLASE IVP ONE ×2 (14:45→15:45)
[2023-03-11] MEDS ORDERED: NORMAL SALINE IVP ONE ×2 (14:45→15:45)
[2023-03-11] MEDS: TRAZODONE 50 MG TABLET PO SCH (21:59)
[2023-03-11] MEDS: DONEPEZIL 5 MG TABLET PO SCH (21:59)
[2023-03-11] MEDS: ENOXAPARIN SODIUM 40 MG/0.4 ML DISP.SYRIN SQ SCH (22:04)
[2023-03-12] VITALS (12 sets, daily range): BP systolic 99–131; BP diastolic 55–73; TEMP 97.2–98.4; O2SAT 96–100
[2023-03-12] MEDS: ACETYLCYSTEINE 10% 4ML VIAL NEB SCH ×4 (01:30→20:47)
[2023-03-12 05:58] LABS: TOTAL VOLUME,BODY FLUID 22 mL
[2023-03-12 06:05] LABS: PROTEIN, BODY FLUID 4.3 G/DL
[2023-03-12 06:26] LABS: PH, BODY FLUID 7.5
[2023-03-12] MEDS: ACETAMINOPHEN 325 MG TABLET PO PRN (06:36)
[2023-03-12] MEDS: LEVOTHYROXINE SODIUM 150 MCG TABLET PO SCH (06:36)
[2023-03-12 07:02] LABS: BASOPHILS % (AUTO) 0.2 % (0.0-2.0); EOSINOPHILS # (AUTO) 0.2 K/uL (0.0-0.7); EOSINOPHILS % (AUTO) 1.1 % (0.0-7.0); HEMATOCRIT 28.4 % (31.2-41.9); HEMOGLOBIN 9.4 g/dL (10.9-14.3); LYMPHOCYTES # (AUTO) 1.3 K/uL (0.8-4.8); LYMPHOCYTES % (AUTO) 8.1 % (20.5-51.5); MEAN CORPUSCULAR HEMOGLOBIN 29.8 uug (24.7-32.8); MEAN CORPUSCULAR HGB CONC 33 g/dL (32.3-35.6); MEAN CORPUSCULAR VOLUME 89.9 fL (75.5-95.3); MONOCYTES # (AUTO) 1.5 K/uL (0.1-1.30); MONOCYTES % (AUTO) 9.3 % (0.0-11.0); NEUTROPHILS # (AUTO) 12.8 K/uL (1.8-8.9); NEUTROPHILS % (AUTO) 81.3 % (38.5-71.5); PLATELET COUNT (AUTO) 847 K/uL (179-408); RED BLOOD CELL COUNT(AUTO) 3.16 MIL/uL (3.63-4.92); RED CELL DISTRIBUTION WIDTH 15.6 % (12.3-17.7); WHITE BLOOD COUNT (AUTO) 15.8 K/uL (3.8-11.8)
[2023-03-12 07:07] LABS: DIFFERENTIAL COMMENT 1
[2023-03-12 07:15] LABS: CALCIUM 8.6 mg/dL (8.5-10.1); CARBON DIOXIDE 24 mmol/L (21-32); CHLORIDE 92 mmol/L (98-107); CREATININE 0.7 mg/dL (0.6-1.3); GLUCOSE 115 mg/dL (74-106); MAGNESIUM 1.9 mg/dL (1.8-2.4); PHOSPHOROUS 3.1 mg/dL (2.5-4.9); POTASSIUM 4.6 mmol/L (3.5-5.1); SODIUM SERUM 125 mmol/L (136-145); UREA NITROGEN, BLOOD 15 mg/dL (7-18)
[2023-03-12] MEDS: PROTEIN SUPPLEMENT (PROSTAT) 30 ML LIQUID PO SCH ×3 (08:00→16:49)
[2023-03-12] MEDS: ALBUTEROL SULFATE 2.5 MG/3 ML NEBU NEB SCH ×3 (08:20→20:47)
[2023-03-12] MEDS: IPRATROPIUM BROMIDE 0.5 MG/2.5 ML NEBU NEB SCH ×3 (08:20→20:47)
[2023-03-12] MEDS: FLUCONAZOLE 100 MG TABLET PO SCH (09:18)
[2023-03-12] MEDS: buPROPion 100 MG TABLET PO SCH (09:18)
[2023-03-12] MEDS: SODIUM CHLORIDE 1,000 MG TABLET PO SCH ×2 (09:18→16:48)
[2023-03-12] MEDS: MAGNESIUM OXIDE 400 MG TABLET PO SCH (09:18)
[2023-03-12] MEDS: MULTIVIT, IRON, MIN NO. 8, FA TABLET PO SCH (09:18)
[2023-03-12] MEDS: ASCORBIC ACID 500 MG TABLET PO SCH (09:18)
[2023-03-12] MEDS: CEFEPIME HCL 2 G in IV DEXTROSE 5% 100 ML IV SCH ×2 (09:20→20:24)
[2023-03-12 12:07] LABS: FREE KAPPA LT CHAINS SERUM 64.4 mg/L (3.3-19.4); KAPPA/LAMBDA RATIO SERUM 1.79 (0.26-1.65)
[2023-03-12] MEDS ORDERED: SWABABLE VALVE TRANSFER SET EA MC ONE (13:08)
[2023-03-12] MEDS ORDERED: IOHEXOL 300MG/ML 100 ML INFUS..BTL ONE (13:08)
[2023-03-12] MEDS ORDERED: IV NORMAL SALINE 250 ML IV ONE (13:08)
[2023-03-12] MEDS ORDERED: NORMAL SALINE IVP ONE (13:15)
[2023-03-12] MEDS ORDERED: ALTEPLASE IVP ONE (13:15)
[2023-03-12 13:56] LABS: MONOCYTES,BODY FLUID 0 %; POLYNUCLEAR, BODY FLUID 95 % (0-25 %)
[2023-03-12] MEDS: VANCOMYCIN IV 1,250 MG in IV DEXTROSE 5% 250 ML IV SCH (15:12)
[2023-03-12] MEDS: DONEPEZIL 5 MG TABLET PO SCH (20:24)
[2023-03-12] MEDS: TRAZODONE 50 MG TABLET PO SCH (20:24)
[2023-03-12] MEDS: ENOXAPARIN SODIUM 40 MG/0.4 ML DISP.SYRIN SQ SCH (20:30)
[2023-03-13] VITALS (12 sets, daily range): BP systolic 104–146; BP diastolic 55–60; TEMP 96.8–98.3; O2SAT 97–100
[2023-03-13] MEDS: ACETYLCYSTEINE 10% 4ML VIAL NEB SCH ×4 (01:30→21:28)
[2023-03-13 07:06] LABS: BASOPHILS # (AUTO) 0.2 K/UL (0.0-0.2); BASOPHILS % (AUTO) 0.8 % (0.0-2.0); EOSINOPHILS # (AUTO) 0.1 K/uL (0.0-0.7); EOSINOPHILS % (AUTO) 0.6 % (0.0-7.0); HEMATOCRIT 28.6 % (31.2-41.9); HEMOGLOBIN 9.4 g/dL (10.9-14.3); LYMPHOCYTES # (AUTO) 1.7 K/uL (0.8-4.8); LYMPHOCYTES % (AUTO) 8.4 % (20.5-51.5); MEAN CORPUSCULAR HEMOGLOBIN 30.1 uug (24.7-32.8); MEAN CORPUSCULAR HGB CONC 33 g/dL (32.3-35.6); MEAN CORPUSCULAR VOLUME 91.8 fL (75.5-95.3); MONOCYTES # (AUTO) 1.8 K/uL (0.1-1.30); MONOCYTES % (AUTO) 8.8 % (0.0-11.0); NEUTROPHILS # (AUTO) 16.7 K/uL (1.8-8.9); NEUTROPHILS % (AUTO) 81.4 % (38.5-71.5); PLATELET COUNT (AUTO) 360 K/uL (179-408); RED BLOOD CELL COUNT(AUTO) 3.11 MIL/uL (3.63-4.92); RED CELL DISTRIBUTION WIDTH 15.9 % (12.3-17.7); WHITE BLOOD COUNT (AUTO) 20.5 K/uL (3.8-11.8)
[2023-03-13 07:20] LABS: CALCIUM 8.1 mg/dL (8.5-10.1); CARBON DIOXIDE 22 mmol/L (21-32); CHLORIDE 92 mmol/L (98-107); CREATININE 0.9 mg/dL (0.6-1.3); DIFFERENTIAL COMMENT 1; GLUCOSE 92 mg/dL (74-106); MAGNESIUM 2.2 mg/dL (1.8-2.4); POTASSIUM 5.2 mmol/L (3.5-5.1); SODIUM SERUM 123 mmol/L (136-145); UREA NITROGEN, BLOOD 15 mg/dL (7-18)
[2023-03-13] MEDS: IPRATROPIUM BROMIDE 0.5 MG/2.5 ML NEBU NEB SCH ×3 (07:33→19:30)
[2023-03-13] MEDS: ALBUTEROL SULFATE 2.5 MG/3 ML NEBU NEB SCH ×3 (07:33→21:28)
[2023-03-13] MEDS: MULTIVIT, IRON, MIN NO. 8, FA TABLET PO SCH (08:47)
[2023-03-13] MEDS: ASCORBIC ACID 500 MG TABLET PO SCH (08:47)
[2023-03-13] MEDS: SODIUM CHLORIDE 1,000 MG TABLET PO SCH ×2 (08:47→17:53)
[2023-03-13] MEDS: MAGNESIUM OXIDE 400 MG TABLET PO SCH (08:47)
[2023-03-13] MEDS: FLUCONAZOLE 100 MG TABLET PO SCH (08:47)
[2023-03-13] MEDS: LEVOTHYROXINE SODIUM 150 MCG TABLET PO SCH (08:48)
[2023-03-13] MEDS: PROTEIN SUPPLEMENT (PROSTAT) 30 ML LIQUID PO SCH ×3 (08:48→17:54)
[2023-03-13] MEDS: CEFEPIME HCL 2 G in IV DEXTROSE 5% 100 ML IV SCH ×2 (08:49→20:22)
[2023-03-13] MEDS: buPROPion 100 MG TABLET PO SCH (08:49)
[2023-03-13] MEDS: VANCOMYCIN IV 1,250 MG in IV DEXTROSE 5% 250 ML IV SCH (10:26)
[2023-03-13] MEDS: DEMECLOCYCLINE HCL 300 MG TABLET PO SCH ×2 (10:56→20:22)
[2023-03-13] MEDS ORDERED: NORMAL SALINE IVP ONE (11:00)
[2023-03-13] MEDS ORDERED: ALTEPLASE IVP ONE (11:00)
[2023-03-13] MEDS: HYDROCORTISONE SOD SUCCINATE 100 MG/2 ML VIAL IV SCH ×2 (12:30→17:53)
[2023-03-13] MEDS: TRAZODONE 50 MG TABLET PO SCH (20:22)
[2023-03-13] MEDS: DONEPEZIL 5 MG TABLET PO SCH (20:22)
[2023-03-13] MEDS: ENOXAPARIN SODIUM 40 MG/0.4 ML DISP.SYRIN SQ SCH (20:23)
[2023-03-14] VITALS (11 sets, daily range): BP systolic 104–135; BP diastolic 52–75; TEMP 97–98.2; O2SAT 98–99
[2023-03-14] MEDS: ACETYLCYSTEINE 10% 4ML VIAL NEB SCH ×4 (01:30→21:43)
[2023-03-14 06:51] LABS: BASOPHILS % (AUTO) 0.2 % (0.0-2.0); EOSINOPHILS % (AUTO) 0.2 % (0.0-7.0); HEMATOCRIT 27.8 % (31.2-41.9); HEMOGLOBIN 9.1 g/dL (10.9-14.3); LYMPHOCYTES # (AUTO) 1.3 K/uL (0.8-4.8); LYMPHOCYTES % (AUTO) 7.7 % (20.5-51.5); MEAN CORPUSCULAR HGB CONC 33 g/dL (32.3-35.6); MEAN CORPUSCULAR VOLUME 91.3 fL (75.5-95.3); MONOCYTES % (AUTO) 6.1 % (0.0-11.0); NEUTROPHILS # (AUTO) 14.6 K/uL (1.8-8.9); NEUTROPHILS % (AUTO) 85.8 % (38.5-71.5); PLATELET COUNT (AUTO) 719 K/uL (179-408); RED BLOOD CELL COUNT(AUTO) 3.04 MIL/uL (3.63-4.92); RED CELL DISTRIBUTION WIDTH 15.9 % (12.3-17.7)
[2023-03-14] MEDS: LEVOTHYROXINE SODIUM 150 MCG TABLET PO SCH (07:07)
[2023-03-14 07:12] LABS: CALCIUM 8.5 mg/dL (8.5-10.1); CARBON DIOXIDE 23 mmol/L (21-32); CHLORIDE 94 mmol/L (98-107); CREATININE 0.8 mg/dL (0.6-1.3); GLUCOSE 121 mg/dL (74-106); MAGNESIUM 2.5 mg/dL (1.8-2.4); POTASSIUM 5.5 mmol/L (3.5-5.1); SODIUM SERUM 124 mmol/L (136-145); UREA NITROGEN, BLOOD 18 mg/dL (7-18)
[2023-03-14 07:36] LABS: DIFFERENTIAL COMMENT 1
[2023-03-14] MEDS: ASCORBIC ACID 500 MG TABLET PO SCH (08:31)
[2023-03-14] MEDS: MULTIVIT, IRON, MIN NO. 8, FA TABLET PO SCH (08:31)
[2023-03-14] MEDS: SODIUM CHLORIDE 1,000 MG TABLET PO SCH ×2 (08:31→17:28)
[2023-03-14] MEDS: FLUCONAZOLE 100 MG TABLET PO SCH (08:32)
[2023-03-14] MEDS: buPROPion 100 MG TABLET PO SCH (08:32)
[2023-03-14] MEDS: DEMECLOCYCLINE HCL 300 MG TABLET PO SCH ×2 (08:32→20:54)
[2023-03-14] MEDS: HYDROCORTISONE SOD SUCCINATE 100 MG/2 ML VIAL IV SCH ×3 (08:32→17:30)
[2023-03-14] MEDS: MAGNESIUM OXIDE 400 MG TABLET PO SCH (08:33)
[2023-03-14] MEDS: CEFEPIME HCL 2 G in IV DEXTROSE 5% 100 ML IV SCH ×2 (08:34→20:55)
[2023-03-14] MEDS: ALBUTEROL SULFATE 2.5 MG/3 ML NEBU NEB SCH ×3 (08:34→21:43)
[2023-03-14] MEDS: PROTEIN SUPPLEMENT (PROSTAT) 30 ML LIQUID PO SCH ×3 (08:34→17:30)
[2023-03-14] MEDS: IPRATROPIUM BROMIDE 0.5 MG/2.5 ML NEBU NEB SCH ×3 (08:35→21:42)
[2023-03-14] MEDS ORDERED: SODIUM POLYSTYRENE SULFONATE 15 G/60 ML LIQUID UDC PO ONE (11:45)
[2023-03-14] MEDS ORDERED: SWABABLE VALVE TRANSFER SET EA MC ONE (14:04)
[2023-03-14] MEDS ORDERED: IV NORMAL SALINE 250 ML IV ONE (14:04)
[2023-03-14] MEDS ORDERED: IOHEXOL 300MG/ML 100 ML INFUS..BTL ONE (14:04)
[2023-03-14] MEDS: TRAZODONE 50 MG TABLET PO SCH (20:54)
[2023-03-14] MEDS: DONEPEZIL 5 MG TABLET PO SCH (20:54)
[2023-03-14] MEDS: ENOXAPARIN SODIUM 40 MG/0.4 ML DISP.SYRIN SQ SCH (20:56)
[2023-03-15] VITALS (9 sets, daily range): BP systolic 117–131; BP diastolic 55–65; TEMP 97.6–98; O2SAT 98–100
[2023-03-15] MEDS: ACETYLCYSTEINE 10% 4ML VIAL NEB SCH ×4 (01:30→20:55)
[2023-03-15] MEDS: LEVOTHYROXINE SODIUM 150 MCG TABLET PO SCH (06:42)
[2023-03-15] MEDS: IPRATROPIUM BROMIDE 0.5 MG/2.5 ML NEBU NEB SCH ×3 (07:35→20:54)
[2023-03-15] MEDS: ALBUTEROL SULFATE 2.5 MG/3 ML NEBU NEB SCH ×3 (07:35→20:54)
[2023-03-15 08:28] LABS: BASOPHILS # (AUTO) 0.1 K/UL (0.0-0.2); BASOPHILS % (AUTO) 0.4 % (0.0-2.0); EOSINOPHILS # (AUTO) 0.1 K/uL (0.0-0.7); EOSINOPHILS % (AUTO) 0.3 % (0.0-7.0); HEMATOCRIT 30.2 % (31.2-41.9); HEMOGLOBIN 9.8 g/dL (10.9-14.3); LYMPHOCYTES # (AUTO) 2.1 K/uL (0.8-4.8); LYMPHOCYTES % (AUTO) 11.8 % (20.5-51.5); MEAN CORPUSCULAR HEMOGLOBIN 29.4 uug (24.7-32.8); MEAN CORPUSCULAR HGB CONC 33 g/dL (32.3-35.6); MEAN CORPUSCULAR VOLUME 90.3 fL (75.5-95.3); MONOCYTES # (AUTO) 1.1 K/uL (0.1-1.30); MONOCYTES % (AUTO) 6.4 % (0.0-11.0); NEUTROPHILS # (AUTO) 14.6 K/uL (1.8-8.9); NEUTROPHILS % (AUTO) 81.1 % (38.5-71.5); PLATELET COUNT (AUTO) 885 K/uL (179-408); RED BLOOD CELL COUNT(AUTO) 3.34 MIL/uL (3.63-4.92)
[2023-03-15 08:44] LABS: DIFFERENTIAL COMMENT 1
[2023-03-15] MEDS: SODIUM CHLORIDE 1,000 MG TABLET PO SCH ×2 (08:45→16:21)
[2023-03-15] MEDS: FLUCONAZOLE 100 MG TABLET PO SCH (08:45)
[2023-03-15] MEDS: ASCORBIC ACID 500 MG TABLET PO SCH (08:45)
[2023-03-15] MEDS: MULTIVIT, IRON, MIN NO. 8, FA TABLET PO SCH (08:45)
[2023-03-15] MEDS: PROTEIN SUPPLEMENT (PROSTAT) 30 ML LIQUID PO SCH ×3 (08:46→16:22)
[2023-03-15] MEDS: DEMECLOCYCLINE HCL 300 MG TABLET PO SCH ×2 (08:46→20:59)
[2023-03-15] MEDS: buPROPion 100 MG TABLET PO SCH (08:46)
[2023-03-15] MEDS: HYDROCORTISONE SOD SUCCINATE 100 MG/2 ML VIAL IV SCH (08:48)
[2023-03-15 08:49] LABS: CALCIUM 8.6 mg/dL (8.5-10.1); CARBON DIOXIDE 25 mmol/L (21-32); CHLORIDE 95 mmol/L (98-107); GLUCOSE 105 mg/dL (74-106); MAGNESIUM 2.8 mg/dL (1.8-2.4); PHOSPHOROUS 3.9 mg/dL (2.5-4.9); POTASSIUM 4.7 mmol/L (3.5-5.1); SODIUM SERUM 125 mmol/L (136-145); UREA NITROGEN, BLOOD 22 mg/dL (7-18)
[2023-03-15] MEDS: CEFEPIME HCL 2 G in IV DEXTROSE 5% 100 ML IV SCH ×2 (08:49→20:29)
[2023-03-15] MEDS ORDERED: MAGNESIUM OXIDE 400 MG TABLET PO SCH (09:00)
[2023-03-15] MEDS: ASPIRIN 81 MG TAB.CHEW PO SCH (10:51)
[2023-03-15 17:28] LABS: *SODIUM RNDM,URINE 5 mmol/L (40-220)
[2023-03-15] MEDS: DONEPEZIL 5 MG TABLET PO SCH (20:34)
[2023-03-15] MEDS: TRAZODONE 50 MG TABLET PO SCH (20:34)
[2023-03-15] MEDS: ENOXAPARIN SODIUM 40 MG/0.4 ML DISP.SYRIN SQ SCH (20:34)
[2023-03-16] VITALS (10 sets, daily range): BP systolic 116–130; BP diastolic 55–66; TEMP 97.8–98.1; O2SAT 97–100
[2023-03-16] MEDS: ACETYLCYSTEINE 10% 4ML VIAL NEB SCH ×4 (01:14→20:10)
[2023-03-16] MEDS: LEVOTHYROXINE SODIUM 150 MCG TABLET PO SCH (06:09)
[2023-03-16] MEDS: ALBUTEROL SULFATE 2.5 MG/3 ML NEBU NEB SCH ×3 (07:35→20:11)
[2023-03-16] MEDS: IPRATROPIUM BROMIDE 0.5 MG/2.5 ML NEBU NEB SCH ×3 (07:35→20:10)
[2023-03-16 07:45] LABS: BASOPHILS # (AUTO) 0.2 K/UL (0.0-0.2); BASOPHILS % (AUTO) 1.4 % (0.0-2.0); EOSINOPHILS # (AUTO) 0.2 K/uL (0.0-0.7); EOSINOPHILS % (AUTO) 1.4 % (0.0-7.0); LYMPHOCYTES # (AUTO) 3.1 K/uL (0.8-4.8); LYMPHOCYTES % (AUTO) 24.1 % (20.5-51.5); MEAN CORPUSCULAR HEMOGLOBIN 30.2 uug (24.7-32.8); MEAN CORPUSCULAR HGB CONC 33 g/dL (32.3-35.6); MONOCYTES # (AUTO) 0.8 K/uL (0.1-1.30); MONOCYTES % (AUTO) 6.6 % (0.0-11.0); NEUTROPHILS # (AUTO) 8.5 K/uL (1.8-8.9); NEUTROPHILS % (AUTO) 66.5 % (38.5-71.5); PLATELET COUNT (AUTO) 539 K/uL (179-408); RED BLOOD CELL COUNT(AUTO) 2.97 MIL/uL (3.63-4.92); WHITE BLOOD COUNT (AUTO) 12.8 K/uL (3.8-11.8)
[2023-03-16 08:03] LABS: DIFFERENTIAL COMMENT 1
[2023-03-16 08:09] LABS: CALCIUM 8.2 mg/dL (8.5-10.1); MAGNESIUM 2.3 mg/dL (1.8-2.4); PHOSPHOROUS 3.5 mg/dL (2.5-4.9); POTASSIUM 4.1 mmol/L (3.5-5.1)
[2023-03-16] MEDS: SODIUM CHLORIDE 1,000 MG TABLET PO SCH ×2 (10:18→16:35)
[2023-03-16] MEDS: FLUCONAZOLE 100 MG TABLET PO SCH (10:18)
[2023-03-16] MEDS: ASCORBIC ACID 500 MG TABLET PO SCH (10:18)
[2023-03-16] MEDS: ASPIRIN 81 MG TAB.CHEW PO SCH (10:18)
[2023-03-16] MEDS: GUAIFENESIN/DEXTROMETHORPHAN 5 ML UDC PO PRN (10:19)
[2023-03-16] MEDS: buPROPion 100 MG TABLET PO SCH (10:19)
[2023-03-16] MEDS: DEMECLOCYCLINE HCL 300 MG TABLET PO SCH ×2 (10:19→20:34)
[2023-03-16] MEDS: CEFEPIME HCL 2 G in IV DEXTROSE 5% 100 ML IV SCH ×2 (10:20→20:37)
[2023-03-16] MEDS: PROTEIN SUPPLEMENT (PROSTAT) 30 ML LIQUID PO SCH ×3 (10:21→16:35)
[2023-03-16] MEDS: MULTIVIT, IRON, MIN NO. 8, FA TABLET PO SCH (10:27)
[2023-03-16] MEDS: DONEPEZIL 5 MG TABLET PO SCH (20:34)
[2023-03-16] MEDS: TRAZODONE 50 MG TABLET PO SCH (20:34)
[2023-03-16] MEDS: ENOXAPARIN SODIUM 40 MG/0.4 ML DISP.SYRIN SQ SCH (20:35)
[2023-03-17] VITALS (10 sets, daily range): BP systolic 125–141; BP diastolic 72–80; TEMP 98; O2SAT 98–100
[2023-03-17] MEDS: ACETYLCYSTEINE 10% 4ML VIAL NEB SCH ×4 (01:30→21:36)
[2023-03-17] MEDS: LEVOTHYROXINE SODIUM 150 MCG TABLET PO SCH (06:04)
[2023-03-17 06:30] LABS: BASOPHILS # (AUTO) 0.1 K/UL (0.0-0.2); BASOPHILS % (AUTO) 0.5 % (0.0-2.0); EOSINOPHILS # (AUTO) 0.2 K/uL (0.0-0.7); EOSINOPHILS % (AUTO) 2.1 % (0.0-7.0); HEMATOCRIT 28.1 % (31.2-41.9); HEMOGLOBIN 9.4 g/dL (10.9-14.3); LYMPHOCYTES # (AUTO) 1.4 K/uL (0.8-4.8); LYMPHOCYTES % (AUTO) 14.1 % (20.5-51.5); MEAN CORPUSCULAR HEMOGLOBIN 29.8 uug (24.7-32.8); MEAN CORPUSCULAR HGB CONC 33 g/dL (32.3-35.6); MEAN CORPUSCULAR VOLUME 89.6 fL (75.5-95.3); MONOCYTES % (AUTO) 10.2 % (0.0-11.0); NEUTROPHILS # (AUTO) 7.3 K/uL (1.8-8.9); NEUTROPHILS % (AUTO) 73.1 % (38.5-71.5); PLATELET COUNT (AUTO) 645 K/uL (179-408); RED BLOOD CELL COUNT(AUTO) 3.14 MIL/uL (3.63-4.92); RED CELL DISTRIBUTION WIDTH 15.8 % (12.3-17.7)
[2023-03-17 06:42] LABS: DIFFERENTIAL COMMENT 1
[2023-03-17 06:49] LABS: CALCIUM 8.3 mg/dL (8.5-10.1); CREATININE 0.9 mg/dL (0.6-1.3); MAGNESIUM 2.2 mg/dL (1.8-2.4); PHOSPHOROUS 3.1 mg/dL (2.5-4.9); POTASSIUM 4.4 mmol/L (3.5-5.1)
[2023-03-17] MEDS: ALBUTEROL SULFATE 2.5 MG/3 ML NEBU NEB SCH ×3 (08:14→21:36)
[2023-03-17] MEDS: IPRATROPIUM BROMIDE 0.5 MG/2.5 ML NEBU NEB SCH ×3 (08:14→21:36)
[2023-03-17] MEDS: FLUCONAZOLE 100 MG TABLET PO SCH (08:45)
[2023-03-17] MEDS: ASCORBIC ACID 500 MG TABLET PO SCH (08:45)
[2023-03-17] MEDS: SODIUM CHLORIDE 1,000 MG TABLET PO SCH ×2 (08:45→16:44)
[2023-03-17] MEDS: ASPIRIN 81 MG TAB.CHEW PO SCH (08:45)
[2023-03-17] MEDS: MULTIVIT, IRON, MIN NO. 8, FA TABLET PO SCH (08:45)
[2023-03-17] MEDS: PROTEIN SUPPLEMENT (PROSTAT) 30 ML LIQUID PO SCH ×3 (08:46→18:07)
[2023-03-17] MEDS: DEMECLOCYCLINE HCL 300 MG TABLET PO SCH ×2 (08:48→22:10)
[2023-03-17] MEDS: CEFEPIME HCL 2 G in IV DEXTROSE 5% 100 ML IV SCH (08:48)
[2023-03-17] MEDS: buPROPion 100 MG TABLET PO SCH (08:48)
[2023-03-17] MEDS: DONEPEZIL 5 MG TABLET PO SCH (22:17)
[2023-03-17] MEDS: TRAZODONE 50 MG TABLET PO SCH (22:17)
[2023-03-17] MEDS: ENOXAPARIN SODIUM 40 MG/0.4 ML DISP.SYRIN SQ SCH (22:18)
[2023-03-18] VITALS (11 sets, daily range): BP systolic 106–124; BP diastolic 58–71; TEMP 97.4–99; O2SAT 97–100
[2023-03-18] MEDS: ACETYLCYSTEINE 10% 4ML VIAL NEB SCH ×4 (01:30→19:44)
[2023-03-18] MEDS: LEVOTHYROXINE SODIUM 150 MCG TABLET PO SCH (06:11)
[2023-03-18 07:25] LABS: BASOPHILS % (AUTO) 0.6 % (0.0-2.0); CALCIUM 7.8 mg/dL (8.5-10.1); CARBON DIOXIDE 28 mmol/L (21-32); CHLORIDE 100 mmol/L (98-107); DIFFERENTIAL COMMENT 0; EOSINOPHILS # (AUTO) 0.2 K/uL (0.0-0.7); EOSINOPHILS % (AUTO) 2.9 % (0.0-7.0); GLUCOSE 86 mg/dL (74-106); LYMPHOCYTES # (AUTO) 1.4 K/uL (0.8-4.8); LYMPHOCYTES % (AUTO) 16.6 % (20.5-51.5); MEAN CORPUSCULAR HEMOGLOBIN 29.5 uug (24.7-32.8); MEAN CORPUSCULAR HGB CONC 32 g/dL (32.3-35.6); MEAN CORPUSCULAR VOLUME 91.9 fL (75.5-95.3); MONOCYTES # (AUTO) 0.9 K/uL (0.1-1.30); MONOCYTES % (AUTO) 11.1 % (0.0-11.0); NEUTROPHILS # (AUTO) 5.6 K/uL (1.8-8.9); NEUTROPHILS % (AUTO) 68.8 % (38.5-71.5); PLATELET COUNT (AUTO) 549 K/uL (179-408); POTASSIUM 4.2 mmol/L (3.5-5.1); RED BLOOD CELL COUNT(AUTO) 3.05 MIL/uL (3.63-4.92); SODIUM SERUM 132 mmol/L (136-145); UREA NITROGEN, BLOOD 16 mg/dL (7-18); WHITE BLOOD COUNT (AUTO) 8.2 K/uL (3.8-11.8)
[2023-03-18] MEDS: ALBUTEROL SULFATE 2.5 MG/3 ML NEBU NEB SCH ×3 (07:49→19:44)
[2023-03-18] MEDS: IPRATROPIUM BROMIDE 0.5 MG/2.5 ML NEBU NEB SCH ×3 (07:49→19:44)
[2023-03-18] MEDS: MULTIVIT, IRON, MIN NO. 8, FA TABLET PO SCH (09:06)
[2023-03-18] MEDS: SODIUM CHLORIDE 1,000 MG TABLET PO SCH ×2 (09:06→17:13)
[2023-03-18] MEDS: ASPIRIN 81 MG TAB.CHEW PO SCH (09:06)
[2023-03-18] MEDS: ASCORBIC ACID 500 MG TABLET PO SCH (09:06)
[2023-03-18] MEDS: PROTEIN SUPPLEMENT (PROSTAT) 30 ML LIQUID PO SCH ×3 (09:07→17:13)
[2023-03-18] MEDS: buPROPion 100 MG TABLET PO SCH (09:12)
[2023-03-18] MEDS: DEMECLOCYCLINE HCL 300 MG TABLET PO SCH ×2 (09:12→20:30)
[2023-03-18 09:39] LABS: PHOSPHOROUS 3.6 mg/dL (2.5-4.9)
[2023-03-18] MEDS: DONEPEZIL 5 MG TABLET PO SCH (20:29)
[2023-03-18] MEDS: TRAZODONE 50 MG TABLET PO SCH (20:29)
[2023-03-18] MEDS: ENOXAPARIN SODIUM 40 MG/0.4 ML DISP.SYRIN SQ SCH (20:36)
[2023-03-19] VITALS (8 sets, daily range): BP systolic 104–141; BP diastolic 62–70; TEMP 97.7–98.1; O2SAT 97–100
[2023-03-19] MEDS: ACETYLCYSTEINE 10% 4ML VIAL NEB SCH ×4 (01:30→19:41)
[2023-03-19] MEDS: LEVOTHYROXINE SODIUM 150 MCG TABLET PO SCH (06:29)
[2023-03-19 07:24] LABS: BASOPHILS % (AUTO) 0.4 % (0.0-2.0); EOSINOPHILS # (AUTO) 0.3 K/uL (0.0-0.7); EOSINOPHILS % (AUTO) 3.4 % (0.0-7.0); HEMATOCRIT 28.8 % (31.2-41.9); HEMOGLOBIN 9.6 g/dL (10.9-14.3); LYMPHOCYTES # (AUTO) 1.3 K/uL (0.8-4.8); LYMPHOCYTES % (AUTO) 14.4 % (20.5-51.5); MEAN CORPUSCULAR HEMOGLOBIN 30.4 uug (24.7-32.8); MEAN CORPUSCULAR HGB CONC 33 g/dL (32.3-35.6); MEAN CORPUSCULAR VOLUME 91.4 fL (75.5-95.3); MONOCYTES # (AUTO) 0.8 K/uL (0.1-1.30); MONOCYTES % (AUTO) 9.6 % (0.0-11.0); NEUTROPHILS # (AUTO) 6.3 K/uL (1.8-8.9); NEUTROPHILS % (AUTO) 72.2 % (38.5-71.5); PLATELET COUNT (AUTO) 491 K/uL (179-408); RED BLOOD CELL COUNT(AUTO) 3.15 MIL/uL (3.63-4.92); RED CELL DISTRIBUTION WIDTH 16.1 % (12.3-17.7); WHITE BLOOD COUNT (AUTO) 8.8 K/uL (3.8-11.8)
[2023-03-19 07:30] LABS: DIFFERENTIAL COMMENT 1
[2023-03-19] MEDS: IPRATROPIUM BROMIDE 0.5 MG/2.5 ML NEBU NEB SCH ×3 (07:35→19:40)
[2023-03-19] MEDS: ALBUTEROL SULFATE 2.5 MG/3 ML NEBU NEB SCH ×3 (07:35→19:40)
[2023-03-19 08:01] LABS: CALCIUM 8.3 mg/dL (8.5-10.1); CARBON DIOXIDE 27 mmol/L (21-32); CHLORIDE 98 mmol/L (98-107); CREATININE 0.9 mg/dL (0.6-1.3); GLUCOSE 79 mg/dL (74-106); POTASSIUM 4.2 mmol/L (3.5-5.1); SODIUM SERUM 131 mmol/L (136-145); UREA NITROGEN, BLOOD 14 mg/dL (7-18)
[2023-03-19] MEDS: ASCORBIC ACID 500 MG TABLET PO SCH (09:55)
[2023-03-19] MEDS: PROTEIN SUPPLEMENT (PROSTAT) 30 ML LIQUID PO SCH ×3 (09:55→17:16)
[2023-03-19] MEDS: SODIUM CHLORIDE 1,000 MG TABLET PO SCH ×2 (09:55→17:16)
[2023-03-19] MEDS: MULTIVIT, IRON, MIN NO. 8, FA TABLET PO SCH (09:55)
[2023-03-19] MEDS: ASPIRIN 81 MG TAB.CHEW PO SCH (09:55)
[2023-03-19 11:06] LABS: ALDOSTERONE 1.3 ng/dL (.)
[2023-03-19] MEDS: DEMECLOCYCLINE HCL 300 MG TABLET PO SCH ×2 (11:19→20:41)
[2023-03-19] MEDS: buPROPion 100 MG TABLET PO SCH (11:19)
[2023-03-19 12:08] LABS: RENIN 0.266 ng/mL/hr (.)
[2023-03-19] MEDS: DONEPEZIL 5 MG TABLET PO SCH (20:42)
[2023-03-19] MEDS: TRAZODONE 50 MG TABLET PO SCH (20:42)
[2023-03-19] MEDS: ENOXAPARIN SODIUM 40 MG/0.4 ML DISP.SYRIN SQ SCH (20:43)
[2023-03-20] VITALS (10 sets, daily range): BP systolic 110–131; BP diastolic 56–67; TEMP 97.7–98.6; O2SAT 97–100
[2023-03-20] MEDS: ACETYLCYSTEINE 10% 4ML VIAL NEB SCH ×4 (01:08→20:05)
[2023-03-20 06:38] LABS: BASOPHILS % (AUTO) 0.5 % (0.0-2.0); EOSINOPHILS # (AUTO) 0.2 K/uL (0.0-0.7); EOSINOPHILS % (AUTO) 2.6 % (0.0-7.0); HEMATOCRIT 25.7 % (31.2-41.9); HEMOGLOBIN 8.7 g/dL (10.9-14.3); LYMPHOCYTES # (AUTO) 1.4 K/uL (0.8-4.8); LYMPHOCYTES % (AUTO) 16.4 % (20.5-51.5); MEAN CORPUSCULAR HEMOGLOBIN 30.4 uug (24.7-32.8); MEAN CORPUSCULAR HGB CONC 34 g/dL (32.3-35.6); MEAN CORPUSCULAR VOLUME 89.8 fL (75.5-95.3); MONOCYTES % (AUTO) 11.9 % (0.0-11.0); NEUTROPHILS # (AUTO) 5.8 K/uL (1.8-8.9); NEUTROPHILS % (AUTO) 68.6 % (38.5-71.5); PLATELET COUNT (AUTO) 417 K/uL (179-408); RED BLOOD CELL COUNT(AUTO) 2.87 MIL/uL (3.63-4.92); WHITE BLOOD COUNT (AUTO) 8.5 K/uL (3.8-11.8)
[2023-03-20 06:44] LABS: DIFFERENTIAL COMMENT 1
[2023-03-20] MEDS: LEVOTHYROXINE SODIUM 150 MCG TABLET PO SCH (06:50)
[2023-03-20 06:51] LABS: CARBON DIOXIDE 26 mmol/L (21-32); CHLORIDE 97 mmol/L (98-107); CREATININE 0.8 mg/dL (0.6-1.3); GLUCOSE 88 mg/dL (74-106); POTASSIUM 4.1 mmol/L (3.5-5.1); SODIUM SERUM 128 mmol/L (136-145); UREA NITROGEN, BLOOD 12 mg/dL (7-18)
[2023-03-20] MEDS: IPRATROPIUM BROMIDE 0.5 MG/2.5 ML NEBU NEB SCH ×3 (07:57→20:05)
[2023-03-20] MEDS: ALBUTEROL SULFATE 2.5 MG/3 ML NEBU NEB SCH ×3 (07:57→20:04)
[2023-03-20] MEDS: ASPIRIN 81 MG TAB.CHEW PO SCH (08:51)
[2023-03-20] MEDS: ASCORBIC ACID 500 MG TABLET PO SCH (08:51)
[2023-03-20] MEDS: SODIUM CHLORIDE 1,000 MG TABLET PO SCH ×2 (08:51→17:35)
[2023-03-20] MEDS: MULTIVIT, IRON, MIN NO. 8, FA TABLET PO SCH (08:51)
[2023-03-20] MEDS: PROTEIN SUPPLEMENT (PROSTAT) 30 ML LIQUID PO SCH ×3 (08:51→17:34)
[2023-03-20] MEDS: DEMECLOCYCLINE HCL 300 MG TABLET PO SCH ×2 (08:58→20:12)
[2023-03-20] MEDS: buPROPion 100 MG TABLET PO SCH (08:59)
[2023-03-20] MEDS: TRAZODONE 50 MG TABLET PO SCH (20:10)
[2023-03-20] MEDS: DONEPEZIL 5 MG TABLET PO SCH (20:10)
[2023-03-20] MEDS: ENOXAPARIN SODIUM 40 MG/0.4 ML DISP.SYRIN SQ SCH (20:13)
[2023-03-21] MEDS: OXYCODONE HCL 5 MG TABLET PO PRN (00:07)
[2023-03-21] MEDS: ACETYLCYSTEINE 10% 4ML VIAL NEB SCH ×3 (01:30→14:17)
[2023-03-21 04:45] VITALS: BP 98/59; TEMP 98.4; O2SAT 97
[2023-03-21] MEDS: LEVOTHYROXINE SODIUM 150 MCG TABLET PO SCH (06:35)
[2023-03-21 08:04] VITALS: O2SAT 98
[2023-03-21] MEDS: ALBUTEROL SULFATE 2.5 MG/3 ML NEBU NEB SCH ×2 (08:04→14:17)
[2023-03-21] MEDS: IPRATROPIUM BROMIDE 0.5 MG/2.5 ML NEBU NEB SCH ×2 (08:04→14:17)
[2023-03-21 08:08] LABS: BASOPHILS % (AUTO) 0.7 % (0.0-2.0); EOSINOPHILS # (AUTO) 0.2 K/uL (0.0-0.7); EOSINOPHILS % (AUTO) 2.8 % (0.0-7.0); HEMATOCRIT 24.7 % (31.2-41.9); HEMOGLOBIN 8.3 g/dL (10.9-14.3); LYMPHOCYTES # (AUTO) 1.6 K/uL (0.8-4.8); LYMPHOCYTES % (AUTO) 24.7 % (20.5-51.5); MEAN CORPUSCULAR HEMOGLOBIN 30.9 uug (24.7-32.8); MEAN CORPUSCULAR HGB CONC 34 g/dL (32.3-35.6); MEAN CORPUSCULAR VOLUME 91.2 fL (75.5-95.3); MONOCYTES % (AUTO) 15.2 % (0.0-11.0); NEUTROPHILS # (AUTO) 3.7 K/uL (1.8-8.9); NEUTROPHILS % (AUTO) 56.6 % (38.5-71.5); PLATELET COUNT (AUTO) 355 K/uL (179-408); RED BLOOD CELL COUNT(AUTO) 2.71 MIL/uL (3.63-4.92); RED CELL DISTRIBUTION WIDTH 16.1 % (12.3-17.7); WHITE BLOOD COUNT (AUTO) 6.5 K/uL (3.8-11.8)
[2023-03-21] MEDS: ASPIRIN 81 MG TAB.CHEW PO SCH (08:09)
[2023-03-21] MEDS: MULTIVIT, IRON, MIN NO. 8, FA TABLET PO SCH (08:09)
[2023-03-21] MEDS: SODIUM CHLORIDE 1,000 MG TABLET PO SCH ×2 (08:09→16:20)
[2023-03-21] MEDS: ASCORBIC ACID 500 MG TABLET PO SCH (08:09)
[2023-03-21] MEDS: PROTEIN SUPPLEMENT (PROSTAT) 30 ML LIQUID PO SCH ×3 (08:10→16:09)
[2023-03-21] MEDS: buPROPion 100 MG TABLET PO SCH (08:15)
[2023-03-21] MEDS: DEMECLOCYCLINE HCL 300 MG TABLET PO SCH (08:15)
[2023-03-21 08:22] LABS: DIFFERENTIAL COMMENT 1
[2023-03-21 08:24] VITALS: O2SAT 100
[2023-03-21 08:27] LABS: CALCIUM 7.9 mg/dL (8.5-10.1); CARBON DIOXIDE 28 mmol/L (21-32); CHLORIDE 98 mmol/L (98-107); CREATININE 0.9 mg/dL (0.6-1.3); GLUCOSE 81 mg/dL (74-106); POTASSIUM 4.3 mmol/L (3.5-5.1); SODIUM SERUM 130 mmol/L (136-145); UREA NITROGEN, BLOOD 12 mg/dL (7-18)
[2023-03-21] MEDS ORDERED: DEME300T12 PO (11:48)
[2023-03-21] MEDS ORDERED: LEVO150T PO (11:48)
[2023-03-21] MEDS ORDERED: SODI100010 PO (11:48)
[2023-03-21] MEDS ORDERED: ACET325T53 PO (11:48)
[2023-03-21] MEDS ORDERED: PROT30LI PO (11:48)
[2023-03-21] MEDS ORDERED: IPRA0.2S6 NEB (11:48)
[2023-03-21] MEDS ORDERED: GUAI5SYR PO (11:48)
[2023-03-21] MEDS ORDERED: ACET100V5 NEB (11:48)
[2023-03-21 14:03] LABS: BAND % (MANUAL) 1 % (0-10); NEUTROPHILS % (MANUAL) 50 % (42-75)
[2023-03-21 14:04] LABS: ANISOCYTOSIS 1+; EOSINOPHILS % (MANUAL) 4 % (0-8); LYMPHOCYTES % (MANUAL) 30 % (20-40); MONOCYTES % (MANUAL) 15 % (2-10); PLATELET ESTIMATE ADEQUATE
[2023-03-21 14:16] VITALS: O2SAT 99
[2023-03-21 14:36] VITALS: O2SAT 100
[2023-03-21 16:00] VITALS: BP 135/66; TEMP 97.3; O2SAT 100
== END 2023-03-21 18:22 | DRG 177 ==
LOC: ER 17:38 → TELE3 21:55 → MEDSURG3 03-04 10:00
PROVIDERS: ADMIT Internal Medicine; ATTEND Internal Medicine
PROC: 0W993ZX Drainage of Right Pleural Cavity, Percutaneous Approach, Diagnostic (ICD-10-PCS; principal; 2023-03-05)
PROC: 05H933Z Insertion of Infusion Device into Right Brachial Vein, Percutaneous Approach (ICD-10-PCS; 2023-03-09)
PROC: 0W9930Z Drainage of Right Pleural Cavity with Drainage Device, Percutaneous Approach (ICD-10-PCS; 2023-03-10)
PROC: 3E0L3GC Introduction of Other Therapeutic Substance into Pleural Cavity, Percutaneous Approach (ICD-10-PCS; 2023-03-11)
DX: J15.69 Pneumonia due to other Gram-negative bacteria (principal); E43 Unspecified severe protein-calorie malnutrition; J96.01 Acute respiratory failure with hypoxia; J91.8 Pleural effusion in other conditions classified elsewhere; R78.81 Bacteremia; E27.40 Unspecified adrenocortical insufficiency; E87.1 Hypo-osmolality and hyponatremia; N39.0 Urinary tract infection, site not specified; J47.0 Bronchiectasis with acute lower respiratory infection; F03.93 Unspecified dementia, unspecified severity, with mood disturbance; J94.8 Other specified pleural conditions; J98.11 Atelectasis; M48.54XA Collapsed vertebra, not elsewhere classified, thoracic region, initial encounter for fracture; B95.7 Other staphylococcus as the cause of diseases classified elsewhere; E88.09 Other disorders of plasma-protein metabolism, not elsewhere classified; E83.51 Hypocalcemia; D63.8 Anemia in other chronic diseases classified elsewhere; E03.9 Hypothyroidism, unspecified; Z87.01 Personal history of pneumonia (recurrent); I77.810 Thoracic aortic ectasia; Z85.3 Personal history of malignant neoplasm of breast; Z90.11 Acquired absence of right breast and nipple; K74.60 Unspecified cirrhosis of liver; E05.90 Thyrotoxicosis, unspecified without thyrotoxic crisis or storm; Z79.890 Hormone replacement therapy; G89.29 Other chronic pain; D75.839 Thrombocytosis, unspecified; E66.9 Obesity, unspecified; Z68.28 Body mass index [BMI] 28.0-28.9, adult; Z98.82 Breast implant status; Z75.1 Person awaiting admission to adequate facility elsewhere
CPT/HCPCS: 32555; 36415; 70030-TC; 71045; 71250; 71260; 74170; 76705; 82024; 82088; 82378; 82533; 82747; 82784; 83550; 83605; 83615; 83735; 83986; 84100; 84155; 84165; 84244; 84300; 84443; 84484; 84550; 85014; 85025; 85610; 85730; 86140; 86300; 86334; 87040; 88185; 93005; 93307; 93880; 94640; 94760; C1758; G0378; J0456; J0692; J0696; J0834; J1650; J1720; J1940; J2997; J3370; J3490; J3590; J7040; J7050; J7060; Q9967